=== PATIENT | female | born 1965 | race Caucasian/White ===

== ENCOUNTER 2023-07-06 09:33 | Outpatient (AMB) | payer BC, SELFPAY ==
--- NOTE | 2023-07-06 10:04 | A.OFFVIS_ITS ---
Intake Vital Signs 07/06/23 10:08 Height 5 ft 3 in Weight 231 lb 7.766 oz BMI 41.0 BP 134/72 Blood Pressure Location Lt brachial Position Sitting Pulse 69 Intake Visit Reasons: [employer]/ Preop/ Dr. Gamino/bariatrics Intake Note: NPV w/ EKG [employer] Required: No Accompanied by: Self / Same As Patient Allergies No Known Allergies Allergy (Verified 07/06/23 10:08) Medication List - Last Reconciled 07/06/23 by Bello Hemphill MD acetaminophen 500 mg PO Q6H PRN albuterol sulfate 90 mcg/actuation 2 puffs inhalation Q6H PRN docusate sodium 100 mg PO BID HPI HPI Comments History of Present Illness Details Brittnee is here for consultation regarding an abnormal EKG. She needs preoperative evaluation for bariatric surgery. She does not have any known cardiac issues like coronary disease myocardial infarction or cardiomyopathy. A recent EKG done routinely had revealed left anterior fascicular block as well as left anterior fascicular block and question of ST depression and hence she has been referred here. She states that she is generally doing fine. She does not really have any cardiac symptoms like angina or shortness of breath. Not a known diabetic or hypertensive. History of smoking in the past but nothing recently. Denies any family history of cardiac issues of concern. [facility] Surgical History (Updated 07/06/23 @ 10:11 by Jessica Batista) History of colostomy reversal Family History (Updated 07/06/23 @ 10:11 by Jessica Batista) Mother No problems noted. Father Cancer Social History (Updated 07/06/23 @ 10:12 by Jessica Batista) Alcohol intake: current Alcohol intake frequency: holidays/special occasions only Patient Tobacco Use Status: Former Tobacco user Quit Date: 2012 Tobacco use type: Cigarette Years Smoked: 25 +/- Review of Systems Const Denies chills, Denies daytime sleepiness, Denies fatigue, Denies fever(s), Denies frequent falls, Denies night sweats, Denies snoring, Denies weakness, Denies weight gain and Denies weight loss Eyes Denies loss of vision ENT Denies dizziness and Denies hearing loss Card Denies chest pain, Denies chest pain with activity, Denies syncope, Denies rapid heart rate, Denies edema, Denies claudication, Denies leg edema, Denies l ightheadedness, Denies palpitations, Denies dyspnea, Denies dyspnea on exertion and Denies orthopnea Resp Denies cough, Denies excessive phlegm production, Denies dyspnea, Denies dyspnea on exertion, Denies snoring and Denies wheezing GI Denies abdominal pain, Denies hematochezia, Denies change in bowel habits, Denies change in stool character, Denies heartburn, Denies nausea and Denies vomiting Denies hematuria, Denies urinary frequency and Denies dysuria Musc Denies arthralgias, Denies muscle weakness, Denies numbness and Denies tingling Skin/Breast Denies nail changes and Denies rash Neuro Denies Abnormal speech present, Denies dizziness, Denies syncope, Denies frequent falls, Denies loss of vision, Denies memory loss, Denies numbness, Denies tingling and Denies weakness Psych Denies depression and Denies memory loss Endo Denies fatigue and Denies palpitations Aller/Immun Denies wheezing Physical Exam Vital Signs: Last Vital Signs Pulse 69 07/06/23 10:08 BP 134/72 07/06/23 10:08 BMI result Body Mass Index 41.0 Const General: comfortable and no acute distress Orientation/consciousness: patient oriented x3 HEENT Other: Unremarkable Head: Yes normal to inspection Neck Neck: Yes normal visual inspection Chest Chest palpation & inspection: normal inspection of the chest Resp Auscultation: clear to auscultation bilaterally Cardio Palpation: normal PMI Heart sounds: S1 normal heart sound present, S2 normal heart sound present, no gallops, no murmurs and no rubs GI Palpation (GI): Soft to palpation Back/Spine/Pelvis Other: unremarkable Skin General skin exam: no rashes or lesions noted Neuro General: patient oriented x3 Speech: No Abnormal speech present Extrem General: Yes normal to inspection Psych Mental Status: mental status grossly normal Office Procedures EKG Details: EKG today shows sinus rhythm at 69/Min; what described to follow ventricular hypertrophy versus left ventricle block; [place] [id number], Complete Assessment & Plan Assessment & Plan (1) Preoperative cardiovascular examination: Code(s): Z01.810 - Encounter for preprocedural cardiovascular examination (2) Abnormal EKG: Code(s): R94.31 - Abnormal electrocardiogram [ECG] [EKG] (3) Morbid obesity: Code(s): E66.01 - Morbid (severe) obesity due to excess calories Plan EKG from [facility] as well as today's EKG reviewed. There is suggestion of left anterior fascicular block less likely left ventricular hypertrophy. Findings discussed with patient. She does not have any overt symptoms. We can get a baseline echocardiogram for any structural abnormality. Exercise stress test. Once these are completed and reviewed, can make an addendum. Coding Level of Care Code New Pt Level 3 (38166) Diagnoses Preoperative cardiovascular examination Z01.810 Abnormal EKG R94.31 Morbid obesity E66.01 CPT Codes EKG - CPT: 41486-[id number], Complete ([id number])
[2023-07-06 10:08] VITALS: BP 134/72; PULSE 69; BMI 41.0
== END 2023-07-06 10:58 | disposition home or self-care (01) ==
PROVIDERS: PCP Internal Medicine; Visit Provider Internal Medicine
DX: Z01.810 Encounter for preprocedural cardiovascular examination (principal); R94.31 Abnormal electrocardiogram [ECG] [EKG]; E66.01 Morbid (severe) obesity due to excess calories
CPT/HCPCS: 93010; 99203

== ENCOUNTER → 2023-07-06 09:33 | Outpatient (BNVA) | payer BC, SELFPAY | PROVIDERS: PCP Internal Medicine; Visit Provider Internal Medicine | DX: Z01.810 Encounter for preprocedural cardiovascular examination (principal); R94.31 Abnormal electrocardiogram [ECG] [EKG]; E66.01 Morbid (severe) obesity due to excess calories; Z68.41 Body mass index [BMI] 40.0-44.9, adult | CPT/HCPCS: 93005 ==

== ENCOUNTER → 2023-08-04 08:37 | Outpatient (REF) | payer BC, SELFPAY ==
--- NOTE | 2023-08-04 08:49 | CA_ITS ---
Acquisition Time: 2023-08-04 09:51:57 Total Exercise Time: 00:06:15 Test Indications: preproc exam Medications: Protocol: HAIDER Max HR: 164 BPM 101% of Pred: 161 BPM Max BP: 168/078 mmHG Max Work Load: 7.3 METS Exercise stress test with exercise 6 min 15 sec of Haider protocol, achieving 88% MPHR, with mild sob, no chest discomfort, with fatigue and request to stop, with isolated PACs and a brief 9 beat run of SVT early in recovery, with normotensive response to exercise, without EKG changes meeting criteria for ischemia. Test reviewed with Dr Hemphill. Referred By: Bello Hemphill Overread By: ASHLYN ROSENBAUM
== END ==
LOC: HO.CARD 08:37
PROVIDERS: PCP Internal Medicine; Visit Provider Internal Medicine
DX: Z01.810 Encounter for preprocedural cardiovascular examination (principal); R94.31 Abnormal electrocardiogram [ECG] [EKG]; E66.01 Morbid (severe) obesity due to excess calories
CPT/HCPCS: 93017; 93306; 93356

== ENCOUNTER → 2023-08-04 08:49 | Outpatient (BNV) | payer BC, SELFPAY | PROVIDERS: PCP Internal Medicine; Visit Provider Nurse Practitioner Family | DX: R94.31 Abnormal electrocardiogram [ECG] [EKG] (principal); Z01.810 Encounter for preprocedural cardiovascular examination | CPT/HCPCS: 93016; 93018; 93306 ==